=== PATIENT | female | born 1990 ===

== ENCOUNTER 2019-06-24 10:08 | Inpatient (IN) | payer MEDICAID ==
--- NOTE | 2019-06-24 10:52 | Admission Physical ---
Datetime Report Generated by CPN: 06/24/2019 10:51 CURRENT ADMISSION Chief Complaint: Uterine Contractions Indication for Induction: Not Applicable Admit Impression : Term, Intrauterine Admit Plan: Admit to Unit; Initiate Labor Protocol ALLERGIES Medication Allergies: No Medication Allergies: No Known Allergies (06/24/2019) Latex: No Latex Allergies Food Allergies: n/a Environmental Allergies: n/a OBSTETRICAL HISTORY EDC: 06/29/2019 00:00 : 2 Para: 1 Term: 1 : 0 SAB: 0 IAB: 0 Ectopic: 0 Livin Cesareans: 0 VBACs: 0 Multiple Births: 0 Gestational Diabetes: No Rh Sensitization: No Incompetent Cervix: No BLAYNE: No Infertility: No ART Treatment: No Uterine Anomaly: No IUGR: No Hx Previous C/S: No Macrosomia: No Hx Loss/Stillborn: No PIH: No Hx : No Placenta Previa/Abruption: No Depression/PP Depression: No PTL/PROM: No Post Hemorrhage: No Current Procedures: Ultrasound Obstetrical History Comments: G1- 39+wks G2- current SEE RECORDS Alcohol: No Marijuana : No Cocaine: No Other Illicit Drugs: No Cigarettes: Never Smoker. [id number] MEDICAL HISTORY Diabetes: No Blood Transfusion: No Pulmonary Disease (Asthma, TB): No Breast Disease: No Hypertension: No Rehab Assistant Surgery: No Heart Disease: No Hosp/Surgery: Yes Autoimmune Disorder: No Anesthetic Complications: No Kidney Disease: No Abnormal Pap Smear: No Neuro/Epilepsy: No Psychiatric Disorders: No Other Medical Diseases: No Hepatitis/Liver Disease: No Significant Family History: No Varicosities/Phlebitis: No Trauma/Violence : No Thyroid Dysfunction: No Medical History Comments: childbirth INFECTIOUS HISTORY Gonorrhea: No Genital Herpes: No Chlamydia: No Tuberculosis: No Syphilis: No Hepatitis: No HIV/AIDS Exposure: No Rash or Viral Illness: No HPV: No PHYSICAL EXAM General: Normal HEENT: Normal Neurologic: Normal Thyroid: Normal Heart: Normal Lungs: Normal Breast: Deferred Back: Normal Abdomen: Normal Genitourinary Exam: Normal Extremities: Normal DTRs: Normal Pelvic Type: Adequate FETUS A EGA: 39.2 PLANS FOR LABOR AND DELIVERY Labor and Delivery: None Pain Management: Epidural Feeding Preference: Formula Benefit of Breast Feed Discussed: Yes Circumcision: Yes INFORMED CONSENT Signature: with User ID: [email or web address]
[2019-06-24] MEDS ORDERED: RINGERS SOLUTION,LACTATED 1,000 ML IV ONE (10:56)
[2019-06-24] MEDS ORDERED: RINGERS SOLUTION,LACTATED 1,000 ML IV PRN (10:56)
[2019-06-24] MEDS ORDERED: MISOPROSTOL 0.2 MG TABLET ONE (11:02)
[2019-06-24] MEDS ORDERED: OXYTOCIN/NORMAL SALINE 20 UNIT/1,000 ML RTUINJ ONE (11:02)
[2019-06-24] MEDS ORDERED: LIDOCAINE 1% INJ-PF (10 MG/ML) 30 ML SDV ONE (11:02)
[2019-06-24 11:19] LABS: URINE AMPHETAMINES SCREEN NEGATIVE; URINE BARBITURATES SCREEN NEGATIVE; URINE BENZODIAZEPINES SCREEN NEGATIVE; URINE COCAINE SCREEN NEGATIVE; URINE MARIJUANA (THC) SCREEN NEGATIVE; URINE METHADONE SCREEN NEGATIVE; URINE PHENCYCLIDINE SCREEN NEGATIVE
[2019-06-24 11:23] LABS: ABSOLUTE BASOPHILS # (AUTO) 0.1 10^3/uL (0.0-0.2); ABSOLUTE EOSINOPHILS # (AUTO) 0.1 10^3/uL (0.0-0.6); ABSOLUTE LYMPHOCYTES (AUTO) 1.7 10^3/uL (0.5-4.7); ABSOLUTE MONOCYTES (AUTO) 0.7 10^3/uL (0.1-1.4); ABSOLUTE NEUT (AUTO) 6.5 10^3/uL (1.7-8.2); BASOPHILS % (AUTO) 0.7 % (0-2); EOSINOPHILS % (AUTO) 0.7 % (0-6); HEMATOCRIT 35.9 % (36.0-47.0); HEMOGLOBIN 12.2 g/dL (12.0-15.5); LYMPHOCYTES % (AUTO) 18.5 % (13-45); MEAN CORPUSCULAR HEMOGLOBIN 27.3 pg (27.0-33.4); MEAN CORPUSCULAR HGB CONC 34.1 g/dL (32.0-36.0); MEAN CORPUSCULAR VOLUME 80 fl (80-97); PLATELET COUNT 230 10^3/uL (150-450); RED BLOOD COUNT 4.48 10^6/uL (3.72-5.28); RED CELL DISTRIBUTION WIDTH 16.5 % (11.5-14.0); SEGMENTED NEUTROPHILS % (AUTO) 72.1 % (42-78); TOTAL CELLS COUNTED % (AUTO) 100 %; WHITE BLOOD COUNT 9.1 10^3/uL (4.0-10.5)
[2019-06-24] MEDS ORDERED: PHENYLEPHRINE HCL INJ/PF 10 MG/1 ML SDV ONE (11:37)
[2019-06-24] MEDS ORDERED: EPHEDRINE SULFATE INJ 50 MG/1 ML AMPULE ONE (11:37)
[2019-06-24] MEDS ORDERED: FENTANYL CITRATE INJ/PF 100 MCG/2 ML AMPUL ONE (11:37)
[2019-06-24] MEDS ORDERED: BUPIVACAINE HCL 0.25 % INJ/PF (2.5 MG/1 ML) 30 ML VIAL ONE (11:38)
[2019-06-24] MEDS ORDERED: FENTANYL/BUPIVACAINE/NS/PF 300 MCG/150 ML RTUINJ EPI ONE (11:38)
[2019-06-24 12:11] LABS: APPEARANCE,URINE SLIGHTLY-CLOUDY; BILIRUBIN,URINE NEGATIVE (NEGATIVE); COLOR,URINE YELLOW; GLUCOSE, URINE NEGATIVE (NEGATIVE); KETONES,URINE NEGATIVE (NEGATIVE); LEUKOCYTE ESTERASE,URINE NEGATIVE (NEGATIVE); NITRITE,URINE NEGATIVE (NEGATIVE); PROTEIN,URINE NEGATIVE (NEGATIVE); URINE SPECIFIC GRAVITY 1.009; UROBILINOGEN,URINE NEGATIVE mg/dL (<2.0)
[2019-06-24] MEDS ORDERED: OXYTOCIN/NORMAL SALINE 20 UNIT/1,000 ML RTUINJ IV PRN ×2 (12:30→18:16)
[2019-06-24] MEDS ORDERED: ACETAMINOPHEN WITH CODEINE #3 TABLET PO PRN (18:16)
[2019-06-24] MEDS ORDERED: GLYCERIN/WITCH HAZEL LEAF 1 EACH MED..WIPE TP PRN (18:16)
[2019-06-24] MEDS ORDERED: MEASLES,MUMPS&RUBELLA VACC/PF 0.5 ML VIAL SUBCUT PRN (18:16)
[2019-06-24] MEDS ORDERED: PROMETHAZINE HCL INJ 25 MG/1 ML VIAL IV PRN (18:16)
[2019-06-24] MEDS ORDERED: NA PHOS,M-B/NA PHOS,DI-BA (ADULT) 133 ML ENEMA PR PRN (18:16)
[2019-06-24] MEDS ORDERED: DIPHENHYDRAMINE HCL 25 MG CAPSULE PO PRN (18:16)
[2019-06-24] MEDS ORDERED: PROMETHAZINE HCL 25 MG TABLET PO PRN (18:16)
[2019-06-24] MEDS ORDERED: MAGNESIUM HYDROXIDE SUSP 30 ML UDCUP PO PRN (18:16)
[2019-06-24] MEDS ORDERED: PSEUDOEPHEDRINE HCL 30 MG TABLET PO PRN (18:16)
[2019-06-24] MEDS ORDERED: DIBUCAINE 1% OINTMENT 28 GM TP PRN (18:16)
[2019-06-24] MEDS ORDERED: BENZOCAINE/MENTHOL AEROSOL SPRAY 56 ML TOP PRN (18:16)
[2019-06-24] MEDS ORDERED: PROMETHAZINE HCL 25 MG SUPP.RECT PR PRN (18:16)
[2019-06-24] MEDS ORDERED: DIPH/PERTUSS(ACELL)/TETANUS VAC/PF 0.5 ML SYR (>=10YO) IM PRN (18:16)
[2019-06-24] MEDS ORDERED: ACETAMINOPHEN 650 MG SUPP.RECT PR PRN (18:16)
[2019-06-24] MEDS ORDERED: ZOLPIDEM TARTRATE 5 MG TABLET PO PRN (18:16)
[2019-06-24] MEDS ORDERED: ACETAMINOPHEN WITH CODEINE #3 TABLET ONE (18:30)
[2019-06-24] MEDS ORDERED: IBUPROFEN 800 MG TABLET ONE (18:30)
--- NOTE | 2019-06-24 20:47 | Delivery Summary ---
Del Sum A-C Datetime Report Generated by CPN: 06/24/2019 20:46 DELIVERY PERSONNEL DELIVERY PERSONNEL: [id number] Delivery Doctor:: Chad Berrios MD Labor and Delivery Nurse:: Francine Garcia RNchina and silverware salesperson Nurse:: Kamala Chi RN Nursery Nurse:: Jyothi Walters, RN MATERNAL INFORMATION Delivery Anesthesia: Epidural Medications After Delivery: Pitocin Bolus-Please Comment Meds After Delivery Comment: pitocin 20 units in 1000mL nss Delivery QBL: 100 Maternal Complications: None LABOR SUMMARY EDC: 06/29/2019 00:00 No. Babies in Womb: 1 Attempted: No Labor Anesthesia: Epidural LABOR INFORMATION Reason for Induction: Not Applicable Onset of Labor: 06/24/2019 03:00 Complete Dilatation: 06/24/2019 16:13 Oxytocin: Augmentation Group B Beta Strep: negative Steroids Given: None Reason Steroids Not Administered: Not Applicable MEMBRANES Membranes Rupture Method: Artificial Rupture of Membranes: 06/24/2019 11:32 Length of Rupture (hr): 6.58 Amniotic Fluid Color: Clear Amniotic Fluid Amount: Small Amniotic Fluid Odor: Normal STAGES OF LABOR Stage 1 hr: 13 Stage 1 min: 13 Stage 2 hr: 1 Stage 2 min: 54 Stage 3 hr: 0 Stage 3 min: 4 Total Time in Labor hr: 15 Total Time in Labor min: 11 VAGINAL DELIVERY Episiotomy: None Laceration #1: None Laceration Repair: Not Applicable Sponge Count Correct: Yes Sharps Count Correct: Yes CSECTION DELIVERY Primary Indication: N/A Secondary Indication: N/A CSection Incidence: N/A Labor: N/A Elective: N/A CSection Incision: N/A BABY A INFORMATION Infant Delivery Date/Time: 06/24/2019 18:07 Method of Delivery: Vaginal Nurse Controlled Delivery: No Born in Route : No : N/A Forceps: N/A Vacuum Extraction: Successful Shoulder Dystocia : No ASSISTED DELIVERY BABY A Indication for Assisted Delivery: poor maternal effort Catheter Prior to Procedure: No Station Vacuum/Forcep Apply: +3 Vacuum Number of Pulls: 1 Vacuum Number of PopOffs: 0 Vacuum/Forceps Comment: 0ne pull PRESENTATION/POSITION BABY A Presentation: Cephalic Cephalic Presentation: Vertex Vertex Position: Left Occipital Anterior Breech Presentation: N/A PLACENTA INFORMATION BABY A Placenta Delivery Time : 06/24/2019 18:11 Placenta Method of Delivery: Spontaneous Placenta Status: Delivered SCORES BABY A Heart Rate 1 min: >100 bpm Resp Effort 1 min: Good Cry Reflex Irritability 1 min: Cough or Sneeze or Pulls Away Muscle Tone 1 min: Active Motion Color 1 min: Body [place], Extremities Blue Resuscitation Effort 1 min: Tactile Stimulation SCORE 1 MIN: 9 Heart Rate 5 min: >100 bpm Resp Effort 5 min: Good Cry Reflex Irritability 5 min: Cough or Sneeze or Pulls Away Muscle Tone 5 min: Active Motion Color 5 min: Body [place], Extremities Blue Resuscitation Effort 5 min: N/A SCORE 5 MIN: 9 INFORMATION BABY A Gestational Age at Delivery: 39.2 Gestational Status: Full Term- 39- 40.6 Weeks Outcome : Liveborn Infant Condition : Stable Sex: Male IDENTIFICATION BABY A Infant Verification Date/Time: 06/24/2019 19:46 ID Band Number: [id number] Mother's Name Verified: Yes Infant RN Verifying : TMartin,RN Additional Verifying Personnel: DO Jackson WEIGHT/LENGTH BABY A Birthweight (gm): 3760 Weight (lb): 8 Infant Weight (oz): 5 Length (in): 19.50 Infant Length (cm): 49.53 CORD INFORMATION BABY A No. Cord Vessels: 3 Nuchal Cord : N/A Cord Blood Taken: Yes-For Eval (Mom's Blood Type - or O+) Suction: None ASSESSMENT BABY A Complications: None Physical Findings at Delivery: Within Normal Limits Infant Respirations: Appears Normal Skin to Skin: Yes Design Tech/ALS Called : No Infant Care By: Jyothi Walters, RN Transferred To: Remains with Mother BABY B INFORMATION : N/A SIGNATURES Signature: with User ID: [email or web address]
[2019-06-24] MEDS: IBUPROFEN 800 MG TABLET PO SCH (21:12)
[2019-06-24] MEDS: FAMOTIDINE 20 MG TABLET PO SCH (21:27)
[2019-06-25] MEDS: IBUPROFEN 800 MG TABLET PO SCH ×3 (06:29→22:08)
[2019-06-25 08:05] LABS: HEMATOCRIT 33.4 % (36.0-47.0); HEMOGLOBIN 11.1 g/dL (12.0-15.5); MEAN CORPUSCULAR HEMOGLOBIN 26.7 pg (27.0-33.4); MEAN CORPUSCULAR HGB CONC 33.3 g/dL (32.0-36.0); MEAN CORPUSCULAR VOLUME 80 fl (80-97); PLATELET COUNT 233 10^3/uL (150-450); RED BLOOD COUNT 4.17 10^6/uL (3.72-5.28); RED CELL DISTRIBUTION WIDTH 16.7 % (11.5-14.0)
[2019-06-25] MEDS: DOCUSATE SODIUM 100 MG CAPSULE PO SCH ×2 (09:44→18:01)
[2019-06-25] MEDS: SENNOSIDES/DOCUSATE 8.6-50 MG 1 EACH TABLET PO SCH (09:44)
[2019-06-25] MEDS: FAMOTIDINE 20 MG TABLET PO SCH ×2 (09:44→22:08)
[2019-06-25] MEDS: FERROUS SULFATE 325 MG TABLET PO SCH ×2 (09:44→18:01)
[2019-06-25] MEDS ORDERED: PRENATAL VITAMIN W DHA CAPSULE PO SCH (10:00)
[2019-06-25] MEDS: PRENATAL VITAMIN W DHA CAPSULE PO SCH (10:57)
--- NOTE | 2019-06-25 12:04 | PDOC PROGRESS REPORT ---
Subjective-OB Progress Note for:: 06/25/19 - PP Day #1, doing well, no complaints, UOB voiding, O+, rubella Immune, bottlefeeding Physical Exam (OB) Vital Signs: Temp Pulse Resp BP Pulse Ox 97.6 F 96 18 117/75 99 06/25/19 07:22 06/25/19 07:22 06/25/19 07:22 06/25/19 07:22 06/25/19 07:22 Intake & Output 06/24/19 06/25/19 06/26/19 06:59 06:59 06:59 Weight 95.8 kg - General General Appearance: Appears well, Alert In distress: None - PIH/Pre-Eclampsia Clonus: Negative Headache: Absent Epigastric Pain: No Visual Changes: No - Lochia Lochia Amount: Scant < 10 ml Lochia Color: Rubra/Red - Abdomen Description: Soft Hernia Present: No Fundal Description: Firm, Midline Fundal Height: u/u - u/2 - Respiratory Respiratory Status: No respiratory distress - Abdominal Distension: No distension Tenderness: Nontender - Genitourinary Genitourinary Note: voiding - Extremities Upper extremity: Normal inspection Lower extremities: Normal inspection - Neurological Cognition: Normal Orientation: AAOx4 - Psychological Associated symptoms: Normal affect, Normal mood - Skin Skin Temperature: Warm Skin Moisture: Dry Objective-Diagnostic Laboratory: 06/25/19 07:20 06/24/19 06/24/19 06/25/19 10:18 11:07 07:20 WBC 15.0 H RBC 4.17 Hgb 11.1 L Hct 33.4 L MCV 80 MCH 26.7 L MCHC 33.3 RDW 16.7 H Plt Count 233 Urine Color YELLOW Urine Appearance SLIGHTLY-CLOUDY Urine pH 7.0 Ur Specific [place] 1.009 Urine Protein NEGATIVE Urine Glucose (UA) NEGATIVE Urine Ketones NEGATIVE Urine Blood MODERATE H Urine Nitrite NEGATIVE Ur Leukocyte Esterase NEGATIVE Blood Type O POSITIVE Antibody Screen NEGATIVE Assessment and Plan(PN) - Assessment and Plan (1) (normal spontaneous vaginal delivery) Is this a current diagnosis for this admission?: Yes (2) Normal course Is this a current diagnosis for this admission?: Yes Plan:: Routine PP orders, ambulation encouraged - Time Spent with Patient Time with patient: Less than 15 minutes Medications reviewed and adjusted accordingly: Yes - Disposition Anticipated Discharge: Home Within: within 24 hours
[2019-06-26] MEDS: IBUPROFEN 800 MG TABLET PO SCH (06:23)
[2019-06-26 08:14] VITALS: BP 122/83
[2019-06-26] MEDS: FAMOTIDINE 20 MG TABLET PO SCH (09:38)
[2019-06-26] MEDS: SENNOSIDES/DOCUSATE 8.6-50 MG 1 EACH TABLET PO SCH (09:38)
[2019-06-26] MEDS: PRENATAL VITAMIN W DHA CAPSULE PO SCH (09:38)
[2019-06-26] MEDS: FERROUS SULFATE 325 MG TABLET PO SCH (09:38)
[2019-06-26] MEDS: DOCUSATE SODIUM 100 MG CAPSULE PO SCH (09:38)
--- NOTE | 2019-06-26 11:11 | PDOC DISCHARGE SUMMARY ---
Impression - Admit/DC Date/PCP Admission Date/Primary Care Provider: 06/24/19 10:53 DELANEY SOLIS MD Discharge Date: 06/26/19 - Discharge Diagnosis (1) (normal spontaneous vaginal delivery) Is this a current diagnosis for this admission?: Yes (2) Normal course Is this a current diagnosis for this admission?: Yes - Additional Information Resuscitation Status: Full Code Discharge Diet: Regular Discharge Activity: Balance Activity w/Rest, Pelvic Rest Referrals: DELANEY SOLIS MD [Primary Care Provider] - Home Medications: Vit,Calc76/Iron/Folic [Prenatabs Rx Tablet] 1 each PO DAILY 06/24/19 Results Laboratory Results: WBC 15.0 10^3/uL (4.0-10.5) H 06/25/19 07:20 RBC 4.17 10^6/uL (3.72-5.28) 06/25/19 07:20 Hgb 11.1 g/dL (12.0-15.5) L 06/25/19 07:20 Hct 33.4 % (36.0-47.0) L 06/25/19 07:20 MCV 80 fl (80-97) 06/25/19 07:20 MCH 26.7 pg (27.0-33.4) L 06/25/19 07:20 MCHC 33.3 g/dL (32.0-36.0) 06/25/19 07:20 RDW 16.7 % (11.5-14.0) H 06/25/19 07:20 Plt Count 233 10^3/uL (150-450) 06/25/19 07:20 Lymph % (Auto) 18.5 % (13-45) 06/24/19 11:07 [place] % (Auto) 8.0 % (3-13) 06/24/19 11:07 Eos % (Auto) 0.7 % (0-6) 06/24/19 11:07 Baso % (Auto) 0.7 % (0-2) 06/24/19 11:07 Absolute Neuts (auto) 6.5 10^3/uL (1.7-8.2) 06/24/19 11:07 Absolute Lymphs (auto) 1.7 10^3/uL (0.5-4.7) 06/24/19 11:07 Absolute Monos (auto) 0.7 10^3/uL (0.1-1.4) 06/24/19 11:07 Absolute Eos (auto) 0.1 10^3/uL (0.0-0.6) 06/24/19 11:07 Absolute Basos (auto) 0.1 10^3/uL (0.0-0.2) 06/24/19 11:07 Seg Neutrophils % 72.1 % (42-78) 06/24/19 11:07 Urine Color YELLOW 06/24/19 10:18 Urine Appearance SLIGHTLY-CLOUDY 06/24/19 10:18 Urine pH 7.0 (5.0-9.0) 06/24/19 10:18 Ur Specific [place] 1.009 06/24/19 10:18 Urine Protein NEGATIVE mg/dL (NEGATIVE) 06/24/19 10:18 Urine Glucose (UA) NEGATIVE mg/dL (NEGATIVE) 06/24/19 10:18 Urine Ketones NEGATIVE mg/dL (NEGATIVE) 06/24/19 10:18 Urine Blood MODERATE (NEGATIVE) H 06/24/19 10:18 Urine Nitrite NEGATIVE (NEGATIVE) 06/24/19 10:18 Urine Bilirubin NEGATIVE (NEGATIVE) 06/24/19 10:18 Urine Urobilinogen NEGATIVE mg/dL (<2.0) 06/24/19 10:18 Ur Leukocyte Esterase NEGATIVE (NEGATIVE) 06/24/19 10:18 Urine Ascorbic Acid NEGATIVE (NEGATIVE) 06/24/19 10:18 Urine Opiates Screen NEGATIVE 06/24/19 10:18 Urine Methadone Screen NEGATIVE 06/24/19 10:18 Ur Barbiturates Screen NEGATIVE 06/24/19 10:18 Ur Phencyclidine Scrn NEGATIVE 06/24/19 10:18 Ur Amphetamines Screen NEGATIVE 06/24/19 10:18 U Benzodiazepines Scrn NEGATIVE 06/24/19 10:18 Urine Cocaine Screen NEGATIVE 06/24/19 10:18 U Marijuana (THC) Screen NEGATIVE 06/24/19 10:18 RPR NONREACTIVE (NONREACTIVE) 06/24/19 11:07 Blood Type O POSITIVE 06/24/19 11:07 Antibody Screen NEGATIVE 06/24/19 11:07
== END 2019-06-26 13:20 | disposition home or self-care (01) | DRG 807 ==
LOC: LC 10:08 → LR 10:53 → 2S 20:27
PROVIDERS: ADMIT Obstetrics & Gynecology Gynecology; ATTEND Obstetrics & Gynecology Gynecology
PROC: 10D07Z6 Extraction of Products of Conception, Vacuum, Via Natural or Artificial Opening (ICD-10-PCS; principal; 2019-06-24)
DX: O75.81 Maternal exhaustion complicating labor and delivery (principal); Z37.0 Single live birth; O99.344 Other mental disorders complicating childbirth; F41.9 Anxiety disorder, unspecified; Z3A.39 39 weeks gestation of pregnancy
CPT/HCPCS: 36415; 80307; 81005; 85025; 85027; 86592; 86850; 86900; 86901; J2370; J2590; J3010; J3490